=== PATIENT | male | born 1980 | race Caucasian/White ===

== ENCOUNTER 2021-11-05 14:52 | Emergency (ER) | payer BC ==
[~2021-11-05] VITALS: Ht 165.1 cm; Wt 87.1 kg
[2021-11-05 15:02] VITALS: BP 130/77
[2021-11-05] MEDS ORDERED: ONDANSETRON 4 MG/2 ML VIAL IVP ONE (15:15)
--- NOTE | 2021-11-05 15:29 | NUR ---
LAB AT PT BEDSIDE
--- NOTE | 2021-11-05 15:31 | NUR ---
41 Y/O MALE BIB SELF C/O DIZZYNESS, NAUSEA, VOMITING X TODAY. PT STATES HE MAY HAVE EATEN A "TABBACO LEAF BY MISTAKE". PT DENES FEVER, CHILLS. PT DENIES CHEST PAIN, SOB. PMH:HDL MEDS: ROTRAVASTAIN NKA
[2021-11-05 15:39] LABS: BASOPHILS % (AUTO) 0.2 % (0.0-2.0); EOSINOPHILS # (AUTO) 0.1 K/uL (0-0.4); HEMATOCRIT 43.5 % (36-52); HEMOGLOBIN 14.5 g/dL (12.0-18.0); LYMPHOCYTES # (AUTO) 1.5 K/uL (2.0-11.5); LYMPHOCYTES % (AUTO) 22.2 % (20.5-51.1); MEAN CORPUSCULAR HEMOGLOBIN 28 pg (27-31); MEAN CORPUSCULAR HGB CONC 33 g/dL (33-37); MEAN CORPUSCULAR VOLUME 83.1 fL (80-94); MONOCYTES # (AUTO) 0.5 K/uL (0.8-1.0); NEUTROPHILS # (AUTO) 4.6 K/uL (1.8-7.7); NEUTROPHILS % (AUTO) 67.6 % (42.2-75.2); PLATELET COUNT (AUTO) 201 K/uL (140-450); RED BLOOD CELL COUNT(AUTO) 5.23 MIL/uL (4.20-6.10); RED CELL DISTRIBUTION WIDTH 13.8 % (11.6-13.7); WHITE BLOOD COUNT (AUTO) 6.9 K/uL (4.8-10.8)
[2021-11-05 16:03] LABS: ALBUMIN 3.6 g/dL (3.4-5.0); ANION GAP 9.7 (8-16); CARBON DIOXIDE 25.1 mmol/L (21-32); CREATININE 0.9 mg/dL (0.6-1.3); POTASSIUM 3.8 mmol/L (3.5-5.1); TOTAL BILIRUBIN 0.3 mg/dL (0.0-1.0)
--- NOTE | 2021-11-05 17:00 | NUR ---
PT RESTING IN BED, BREATHING EVEN AND UNLABORED, MONITOR IN PLACE
[2021-11-05 19:07] VITALS: BP 134/78
--- NOTE | 2021-11-05 19:12 | NUR ---
Patient discharged with v/s stable. Written and verbal after care instructions given and explained. Patient verbalized understanding. Ambulatory with steady gait. All questions addressed prior to discharge. Advised to follow up with PMD.
== END 2021-11-05 19:07 | disposition home or self-care (01) ==
LOC: MED 14:52
DX: T62.2X4A Toxic effect of other ingested (parts of) plant(s), undetermined, initial encounter (principal); E78.5 Hyperlipidemia, unspecified; R42 Dizziness and giddiness; R11.2 Nausea with vomiting, unspecified; R20.2 Paresthesia of skin; Y92.89 Other specified places as the place of occurrence of the external cause
CPT/HCPCS: 36415; 80053; 83690; 85025; 93005; 96374; 99284; J2405